=== PATIENT | female | born 1985 | race Two or more races ===

== ENCOUNTER 2024-01-04 09:21 | Emergency (ER) | payer BC ==
[~2024-01-04] VITALS: Ht 160 cm; Wt 70.3 kg
[2024-01-04 09:48] VITALS: BP 143/86; TEMP 98
[2024-01-04] MEDS ORDERED: IBUP-1490 PO (11:12)
[2024-01-04 11:59] VITALS: O2SAT 99
== END 2024-01-04 12:00 | disposition home or self-care (01) ==
LOC: ER 10:06
DX: M79.602 Pain in left arm (principal); Z88.8 Allergy status to other drugs, medicaments and biological substances
CPT/HCPCS: 93971-TC